=== PATIENT | male | born 1980 | race Caucasian/White ===

== ENCOUNTER 2018-10-21 11:04 | Outpatient (CLI) ==
[2016-06-15 10:28] VITALS: BMI 41.1
== END 2018-10-21 11:05 | disposition home or self-care (01) ==
LOC: LAB 11:04
PROVIDERS: ATTEND Psychiatry & Neurology Psychiatry
DX: F31.9 Bipolar disorder, unspecified (principal); F41.9 Anxiety disorder, unspecified; I10 Essential (primary) hypertension; E66.9 Obesity, unspecified
CPT/HCPCS: 36415; 80048; 80178; 82306; 82607; 82746; 83036; 83735; 84403; 84436; 84439; 84479; 84480; 85025; 86140